=== PATIENT | female | born 1950 | race American Indian/Alaskan Native ===

== ENCOUNTER 2016-08-17 16:45 | Emergency (ER) | payer MEDICARE ==
[2016-08-17 18:34] LABS: Basophils % (Auto) 1.2 % (0.0-1.8); Hematocrit 39.7 % (30.3-42.9); Hemoglobin 12.8 gm/dl (10.1-14.3); Mean Corpuscular HGB Conc 32 % (30-34); Mean Corpuscular Hemoglobin 28 pg (28-32); Mean Corpuscular Volume 88 fl (79-97); Platelet Count 326 K/mm3 (140-440); Red Blood Count 4.51 M/mm3 (3.65-5.03); Red Cell Distribution Width 14.9 % (13.2-15.2); White Blood Count 7.3 K/mm3 (4.5-11.0)
[2016-08-17 18:50] LABS: Alanine Aminotransferase 13 units/L (7-56); Albumin 4.1 g/dL (3.9-5); Albumin/Globulin Ratio 1.1 %; Alkaline Phosphatase 112 units/L (35-129); Anion Gap 18 mmol/L; Blood Urea Nitrogen 8 mg/dL (7-17); Calcium 9.6 mg/dL (8.4-10.2); Carbon Dioxide 26 mmol/L (22-30); Chloride 103.3 mmol/L (98-107); Glucose 99 mg/dL (65-100); Lipase 27 units/L (13-60); Potassium 4.3 mmol/L (3.6-5.0); Sodium 143 mmol/L (137-145)
[2016-08-18] MEDS ORDERED: PEPCID IV ONE (00:51)
[2016-08-18] MEDS ORDERED: NACL 0.9% 1000 ML 1,000 ML IV ONE (00:51)
[2016-08-18] MEDS ORDERED: ZOFRAN IV ONE (00:51)
[2016-08-18] MEDS ORDERED: ALUM-MAG HYDROX-SIMETH 200-200-20MG/5ML PO ONE (00:52)
[2016-08-18] MEDS ORDERED: LIDOCAINE VISCOUS 2% PO ONE (00:52)
--- NOTE | 2016-08-18 00:56 | Emergency Department Report ---
HPI - General Chief Complaint: Abdominal Pain Time Seen by Provider: 08/18/16 00:40 - HPI HPI: Room 38 The patient is a 66-year-old female presenting with a chief complaint of abdominal pain nausea vomiting and diarrhea. The patient states his symptoms began 4 nights ago after eating a chili cheese dog combo at a casino at approximately 20:30. The patient states by 01:00 that evening she developed nausea vomiting and diarrhea. The patient states her abdomen is sore from constant vomiting. Patient also describes abdominal burning which increases with belching. The patient states her symptoms began she also noticed the stool has been very black. Patient denies use of Pepto-Bismol. Patient states she has not taken any medication. The patient currently complains of abdominal burning and gives her pain a score of 9/10. The patient is uncertain if she's developed a fever. The patient states other family members ate at the casino ( different food which included a chicken strip combo) and they also got sick developing nausea vomiting and diarrhea. Location: Gastrointestinal system Duration: Constant 4 days Quality: Burning Severity: 9/10 Modifying factors: [see above] Context: [see above] Mode of transportation: The patient drove herself to the emergency department and there are no visitors present ED Past Medical Hx - Past Medical History Previous Medical History?: No - Surgical History Additional Surgical History: HERNIA REPAIR. RIGHT ROTATOR CUFF REPAIR - Family History Family history: no significant - Social History Smoking Status: Former Smoker Substance Use Type: None - Medications Home Medications: Home Medications Medication Instructions Recorded Confirmed Last Taken Type Diphenoxylate HCl/Atropine 1 each PO QID PRN #10 tablet 08/18/16 Unknown Rx [Lomotil 2.5-0.025 mg Tablet] HYDROcodone/APAP 5-325 [[place] 1 - 2 each PO Q6HR PRN #14 tablet 08/18/16 Unknown Rx 5/325] Promethazine [Phenergan TAB] 25 mg PO Q6HR PRN #20 tab 08/18/16 Unknown Rx Promethazine [Phenergan] [address] Q6HR PRN #5 supp.rect 08/18/16 Unknown Rx ED Review of Systems ROS: Stated complaint: STOMACH BURNING/VOMITING Other details as noted in HPI Comment: All other systems reviewed and negative Constitutional: fever (?). denies: chills Eyes: denies: eye pain, eye discharge, vision change ENT: denies: ear pain, throat pain Respiratory: denies: cough, shortness of breath, wheezing Cardiovascular: denies: chest pain, palpitations Endocrine: no symptoms reported Gastrointestinal: abdominal pain, nausea, vomiting, diarrhea, melena Genitourinary: denies: urgency, dysuria, discharge Musculoskeletal: denies: back pain, joint swelling, arthralgia Skin: denies: rash, lesions Neurological: denies: headache, weakness, paresthesias Psychiatric: denies: anxiety, depression Hematological/Lymphatic: denies: easy bleeding, easy bruising Physical Exam - Physical Exam Vital Signs: Vital Signs 08/17/16 18:09 Temperature 99.0 F Pulse Rate 65 Respiratory 17 Rate Blood Pressure 138/97 O2 Sat by Pulse 100 Oximetry Physical Exam: GENERAL: The patient is well-developed well-nourished female lying on stretcher not appearing to be in acute distress. [] HEENT: Normocephalic. Atraumatic. Extraocular motions are intact. Patient has moist mucous membranes. NECK: Supple. Trachea midline CHEST/LUNGS: Clear to auscultation. There is no respiratory distress noted. HEART/CARDIOVASCULAR: Regular. There is no tachycardia. There is no gallop rub or murmur. ABDOMEN: Abdomen is soft with diffuse discomfort to palpation. There is no rebound or guarding. Patient has normal bowel sounds. There is no abdominal distention. SKIN: There is no rash. There is no edema. There is no diaphoresis. NEURO: The patient is awake, alert, and oriented. The patient is cooperative. The patient has normal speech MUSCULOSKELETAL: There is no evidence of acute injury. RECTAL: Faint guaiac positive brown stool ED Course Vital Signs 08/17/16 18:09 Temperature 99.0 F Pulse Rate 65 Respiratory 17 Rate Blood Pressure 138/97 O2 Sat by Pulse 100 Oximetry ED Medical Decision Making - Lab Data Result diagrams: 08/17/16 18:20 08/17/16 18:20 Laboratory Tests 08/17/16 08/17/16 18:20 18:20 WBC 7.3 RBC 4.51 Hgb 12.8 Hct 39.7 MCV 88 MCH 28 MCHC 32 RDW 14.9 Plt Count 326 Lymph % (Auto) 46.5 H Yell % (Auto) 7.7 H Eos % (Auto) 4.0 Baso % (Auto) 1.2 Lymph # 3.4 Yell # 0.6 Eos # 0.3 Baso # 0.1 Seg Neutrophils % 40.6 Seg Neutrophils # 2.9 Sodium 143 Potassium 4.3 Chloride 103.3 Carbon Dioxide 26 Anion Gap 18 BUN 8 Creatinine 0.8 Estimated GFR > 60 BUN/Creatinine Ratio 10.00 Glucose 99 Calcium 9.6 Total Bilirubin 0.40 AST 19 ALT 13 Alkaline Phosphatase 112 Total Protein 8.0 Albumin 4.1 Albumin/Globulin Ratio 1.1 Lipase 27 - Radiology Data Radiology results: report reviewed (CT abdomen and pelvis), image reviewed (CT abdomen and pelvis) CT abdomen and pelvis (read by radiologist)-there is no evidence of intestinal or urinary tract instruction. No ileus or enteritis. Appendix is normal. Fatty infiltration of the liver is noted. - Medical Decision Making The stool that I saw on rectal exam was brown and not melanotic in nature. Although it was faint guaiac positive I do not believe this represents a significant upper GI bleed. The patient has a normal BUN /creatinine ratio, normal H&H in addition to not being orthostatic. I believe the patient's stool is guaiac positive secondary to gastroenteritis and frequent diarrhea. The patient will be given strong warnings to return should she develop any concerning symptoms but she'll also be given referral to a marketing services manager for further evaluation - Differential Diagnosis acute gastroenteritis, upper GI bleed, colitis, diverticulitis Critical care attestation.: If time is entered above; I have spent that time in minutes in the direct care of this critically ill patient, excluding procedure time. ED Disposition Clinical Impression: Acute gastroenteritis, Nausea vomiting and diarrhea, Guaiac positive stools Disposition: DC-01 TO HOME OR SELFCARE Is pt being admited?: No Does the pt Need Aspirin: No Condition: Stable Instructions: Abdominal Pain (ED), Acute Nausea and Vomiting (ED), Gastroenteritis (ED), Food Poisoning (ED) Additional Instructions: Return to the emergency department immediately should you develop worsening symptoms, fever, inability to tolerate food or liquid or any other concerns. Prescriptions: Diphenoxylate HCl/Atropine [Lomotil 2.5-0.025 mg Tablet] 1 each PO QID PRN #10 tablet PRN Reason: Diarrhea HYDROcodone/APAP 5-325 [[place] 5/325] 1 - 2 each PO Q6HR PRN #14 tablet PRN Reason: Pain Promethazine [Phenergan TAB] 25 mg PO Q6HR PRN #20 tab PRN Reason: Nausea Promethazine [Phenergan] [address] Q6HR PRN #5 supp.rect PRN Reason: Vomiting Referrals: PRIMARY CARE, [Primary Care Provider] - 3-5 Days JESSEE FRIAS MD [Staff Physician] - [facility] (Dr. Frias is a marketing services manager. Please follow up with him for further evaluation) Time of Disposition: 03:06
[2016-08-18] MEDS ORDERED: NACL ONE (01:20)
--- NOTE | 2016-08-18 02:53 | Cat Scan Report ---
FINAL REPORT PROCEDURE: CT ABDOMEN PELVIS W CON TECHNIQUE: Computerized axial tomography of the abdomen and pelvis was performed after the IV injection of iodinated nonionic contrast. HISTORY: n/v/d diffuse abdominal pain COMPARISON: No prior studies are available for comparison. FINDINGS: Visualized lower thorax: No significant abnormality. Liver: Liver is fatty infiltrated.. Spleen: Normal size and attenuation. Gallbladder and biliary system: Normal. Pancreas: Normal. Adrenals: Normal. Kidneys: Normal. GI tract: No obstruction. No ileus or enteritis. The cecum, appendix and colon are normal. Lymph nodes and mesentery: Normal. Vasculature: Normal. Bladder: Normal. Reproductive organs: Normal. Peritoneum: No free fluid. Musculoskeletal structures: No significant abnormality. Other: None. IMPRESSION: There is no evidence of intestinal or urinary tract obstruction. No ileus or enteritis. The appendix is normal. Fatty infiltration of the liver is noted.
[2016-08-18 03:24] VITALS: BP 120/77
== END 2016-08-18 03:23 | disposition home or self-care (01) ==
LOC: ED 16:45
DX: K52.9 Noninfective gastroenteritis and colitis, unspecified (principal); Z87.891 Personal history of nicotine dependence
CPT/HCPCS: 36415; 74177; 80053; 82271; 83690; 85025; 96361; 96374; 96375; 99284; J2405; J7030; Q9967